=== PATIENT | male | born 1945 | race Caucasian/White ===

== ENCOUNTER 2019-01-03 23:11 | Observation (INO) | payer OTHER ==
[~2019-01-03] VITALS: Ht 182.9 cm; Wt 89.8 kg
[2019-01-03 23:45] LABS: BASOPHILS % (AUTO) 0.7 % (0.0-5.0); EOSINOPHILS % (AUTO) 3.4 % (0.0-8.0); LYMPHOCYTES % (AUTO) 27.5 % (21.0-51.0); MEAN CORPUSCULAR HEMOGLOBIN 29.9 pg (27.0-33.0); MEAN CORPUSCULAR HGB CONC 33.6 g/dL (32.0-36.0); MEAN CORPUSCULAR VOLUME 89.2 fL (79-99); NEUTROPHILS % (AUTO) 55.4 % (40.0-77.0); PLATELET COUNT (AUTO) 239 K/uL (130-400); RED BLOOD CELL COUNT(AUTO) 5.16 MIL/uL (4.50-6.20); RED CELL DISTRIBUTION WIDTH 13.7 % (11.0-15.5); WHITE BLOOD COUNT (AUTO) 8.9 K/uL (4.8-10.8)
[2019-01-03 23:57] LABS: CREATININE 1.2 mg/dL (0.5-1.5); POTASSIUM 4.2 mmol/L (3.5-5.1)
[2019-01-04] LABS: INR 0.95 (0.85-1.15); PARTIAL THROMBOPLASTIN TIME 25.9 SEC (26.3-35.5)
[2019-01-04 00:01] LABS: ALBUMIN 3.8 g/dL (3.5-5.0); BILIRUBIN,TOTAL 0.3 mg/dL (0.2-1.0); TOTAL PROTEIN, SERUM 7.1 g/dL (6.0-8.3)
[2019-01-04 00:18] LABS: APPEARANCE,URINE Clear (CLEAR); BILIRUBIN,URINE Negative (NEGATIVE); COLOR,URINE Yellow (YELLOW); GLUCOSE, URINE (UA) Negative (NEGATIVE); KETONES,URINE Negative (NEGATIVE); LEUKOCYTE ESTERASE ,URINE Moderate (NEGATIVE); NITRATE,URINE Negative (NEGATIVE); OCCULT BLOOD,URINE Negative (NEGATIVE); PROTEIN,URINE Negative (NEGATIVE)
[2019-01-04 00:51] LABS: BACTERIA,URINE Rare /HPF (None Seen); RBC,URINE 0-1 /HPF (0-1); SQUAMOUS EPITHELIAL CELL,UR Rare /HPF (0-2)
[2019-01-04 03:59] VITALS: BP_SYST 149; BP_SYST 154; BP_DIAS 81; BP_DIAS 84
[2019-01-04 06:44] LABS: HEMATOCRIT 41.5 % (42-54)
[2019-01-04 08:00] VITALS: BP 135/79
[2019-01-04 11:22] LABS: HEMATOCRIT 41.1 % (42-54)
[2019-01-04 11:50] VITALS: BP 133/80
[2019-01-04 16:00] VITALS: BP 136/80
--- NOTE | 2019-01-04 16:28 | NUR ---
CALL FORM DR CLARK OFFICE ORDERS RECEIVED TO CONSENT PATIENT FOR EGD AND COLONOSCOPY WITH MAC 01/05/19 AROUND 11 AM , PREP GO-LYLTELY AND CLEAR LIQUID TILL 2 AM THE NPO. ORDERS SEND TO [facility] AND FOLLOW-UP WITH CALL . PATIENT AND INFORMED OF THE PROCEDURE. NO QUESTIONS AT THIS TIME
[2019-01-04] MEDS ORDERED: PEG 3350/NA SULF,BICARB,CL/KCL 4000 ML SOLN PO SCH (18:15)
--- NOTE | 2019-01-04 18:57 | NUR ---
INITIAL MET W PT AND SPOUSE DIONNE WHO WILL PROVIDE TRANSPORT PT IS ACTIVE, INDP, NO DME, NO HH; DCP HOME HERE FOR [facility] FOR SCOPE IN CM TO FOLLOW Addendum: 01/04/19 at 1859 by ALYX RYAN RN CM Amended: Links added.
--- NOTE | 2019-01-04 19:02 | NUR ---
BRIGHT RED STOOLS ADVISED BY RN THIS AM THAT PT DID HAVE EPISODE OF BRIGHT RED IN HIS STOOL. NOT YET NOTED WILL WAIT FOR FURTHERER DOCUMENTATION BY MD/STAFF PRIOR TO ASKING FOR IP STATUS.
[2019-01-04 20:00] VITALS: BP 126/77
[2019-01-05] VITALS (20 sets, daily range): BP systolic 99–144; BP diastolic 65–85
--- NOTE | 2019-01-05 08:27 | NUR ---
PATIENT PREPPED; NOT CLEAR Patient finished the golytely about 0100; stool output is not clear. Last bowel movement had stool particles, dark green. Endorsed to day shift nurse, Sunita NEWBY, to call or nnamdi Canales to inform that patient is not clear and not ready for colonoscopy.
--- NOTE | 2019-01-05 08:50 | NUR ---
GI Spoke with Dr Lin Canales re: not clear and received order for 2 fleets enemas. Both were given and patient tolerated without adverse effects; stool noted to be a brownish-yellow liquid; no solid stool visible.
[2019-01-05] MEDS ORDERED: PROPOFOL 1000 MG/100 ML 100 ML IV ONE (10:39)
[2019-01-05] MEDS ORDERED: LIDOCAINE HCL-MPF 2% 5ML VIAL ONE (10:40)
[2019-01-05] MEDS ORDERED: GLYCOPYRROLATE 0.2 MG/ML 5 ML VIAL ONE (10:40)
--- NOTE | 2019-01-05 10:50 | NUR ---
To GI lab Patient transported to GI lab via stretcher; awake and alert; in no distress.
--- NOTE | 2019-01-05 12:00 | NUR ---
BACK TO ROOM Patient back to room in no distress. V/S stable upon arrival.
[2019-01-05] MEDS: FAMOTIDINE 20MG TAB 20 MG TAB PO SCH (21:12)
[2019-01-05] MEDS: PSYLLIUM SEED 1 EACH PACKET PO SCH (21:12)
[2019-01-06] VITALS: BP 127/72
[2019-01-06 04:00] VITALS: BP 130/71
[2019-01-06 05:55] LABS: BASOPHILS % (AUTO) 0.6 % (0.0-5.0); EOSINOPHILS % (AUTO) 3.2 % (0.0-8.0); LYMPHOCYTES % (AUTO) 27.1 % (21.0-51.0); MEAN CORPUSCULAR HEMOGLOBIN 30.4 pg (27.0-33.0); MEAN CORPUSCULAR HGB CONC 34.1 g/dL (32.0-36.0); MEAN CORPUSCULAR VOLUME 89.1 fL (79-99); MONOCYTES % (AUTO) 11.6 % (3.0-13.0); NEUTROPHILS % (AUTO) 57.5 % (40.0-77.0); PLATELET COUNT (AUTO) 239 K/uL (130-400); RED BLOOD CELL COUNT(AUTO) 4.15 MIL/uL (4.50-6.20); RED CELL DISTRIBUTION WIDTH 13.5 % (11.0-15.5); WHITE BLOOD COUNT (AUTO) 7.8 K/uL (4.8-10.8)
[2019-01-06 06:12] LABS: CREATININE 1.1 mg/dL (0.5-1.5); POTASSIUM 4.3 mmol/L (3.5-5.1)
--- NOTE | 2019-01-06 07:40 | NUR ---
ALERT AND ORIENTED X3, STABLE ON ROOM AIR, DENIES PAIN/DISCOMFORT. PLAN OF CARE DISCUSSED WITH PATIENT HE VERBALIZED UNDERSTANDING. ANTICIPATING TO GOING HOME TODAY.
[2019-01-06 08:00] VITALS: BP 135/68
[2019-01-06] MEDS: PSYLLIUM SEED 1 EACH PACKET PO SCH (09:46)
[2019-01-06] MEDS: FAMOTIDINE 20MG TAB 20 MG TAB PO SCH (09:46)
--- NOTE | 2019-01-06 11:30 | NUR ---
SITTING IN BED WITH COMPUTER AND IS AT THE BEDSIDE. NO ACUTE DISTRESS OBSERVED.
[2019-01-06 12:00] VITALS: BP 125/71
--- NOTE | 2019-01-06 16:04 | NUR ---
DISCHARGE INSTRUCTIONS REVIEWED WITH THE PATIENT IN THE PRESENCE OF HIS AND HE VERBALIZED CLEAR UNDERSTANDING. F/U ON MONDAY WITH DR BINGHAM AND [address] CLARK WERE CONVEYED TO HIM AND HE VOICED UNDERSTANDING. PATIENT LEFT THE UNIT IN STABLE CONDITION AMBULATORY IN CARE OF HIS SPOUSE.
== END 2019-01-06 16:00 | disposition home or self-care (01) ==
LOC: EDH 23:11 → EDHIP 01-04 01:50 → 3CH 01-04 03:56
PROVIDERS: ADMIT Internal Medicine; ATTEND Internal Medicine
DX: K57.31 Diverticulosis of large intestine without perforation or abscess with bleeding (principal); D62 Acute posthemorrhagic anemia; K62.5 Hemorrhage of anus and rectum
CPT/HCPCS: 36415 ×3; 43239; 45380; 80048; 80053; 81001; 82270 ×2; 85014 ×2; 85018 ×2; 85025 ×2; 85610; 85730; 86850; 86900; 86901; 88305; 93005; G0378 ×62; J2704; J3490 ×2